=== PATIENT | male | born 1955 | race Caucasian/White ===

== ENCOUNTER 2024-06-20 13:10 | Emergency (ER) | payer MEDICARE, SELFPAY ==
[2024-06-20] VITALS (30 sets, daily range): BP systolic 108–161; BP diastolic 71–100; PULSE 41–66; RESP 16–20; TEMP 37.3; O2SAT 93–98; BMI 26.3
--- NOTE | 2024-06-20 | CRLHL7_ITS ---
For Patients: As a result of the 21st Century Cures Act, medical imaging exams and procedure reports are released immediately into your electronic medical record. You may view this report before your referring provider. If you have questions, please contact your health care provider. INDICATION: LEFT FACIAL Weakness, HEAD THROUGH LEFT SIDE OF FACE. HX EPILEPSY TECHNIQUE: CT of the head was performed without IV contrast. COMPARISON: None. FINDINGS: Parenchyma: No acute hemorrhage, infarction, or mass. Mild scattered periventricular white matter hypoattenuation is nonspecific and is favored to represent chronic small vessel ischemic disease. Ventricles and extra-axial spaces: Mild involutional changes. Visualized paranasal sinuses: Clear. Mastoid air cells: Clear. Bones: No focal abnormality. Additional comment: None. IMPRESSION: No acute hemorrhage or large territorial infarct. Findings discussed with Dr. Loya at 1:27 p.m. on 06/20/2024. Please note that all CT scans at this facility use dose modulation, iterative reconstruction, and/or weight-based dosing when appropriate to reduce radiation dose to as low as reasonably achievable. Dictated by Chuy Jacobson MD @ 06/20/2024 1:28:52 PM (Electronically Signed)
--- NOTE | 2024-06-20 13:20 | CRLHL7_ITS ---
For Patients: As a result of the Century Cures Act, medical imaging exams and procedure reports are released immediately into your electronic medical record. You may view this report before your referring provider. If you have questions, please contact your health care provider. DATE: CLINICAL HISTORY: Patient with focal neurological deficits. TECHNIQUE: Standard helical CT image acquisition of the neck up to the skull base after bolus intravenous contrast enhancement. 2D and 3D MIP images for post-processing were performed and interpreted on an independent workstation and 3D images were permanently archived. COMPARISON: CT same day. FINDINGS: The origins of the great vessels from the aortic arch are patent. The origin of the right vertebral artery is patent. The origin of the left vertebral artery is patent. The common carotid arteries are patent. There is no stenosis at the origin of the right internal carotid artery. There is no stenosis at the origin of the left internal carotid artery. The rest of the cervical segments of the internal carotid arteries are patent up to the skull base. The vertebral arteries are codominant. The cervical segments of the vertebral arteries are patent up to the skull base. The visualized lung apices are unremarkable. The thyroid gland is unremarkable. The soft tissues of the neck are unremarkable. There are degenerative changes in the cervical spine. IMPRESSION: Patent cervical vasculature. Please note that all CT scans at this facility use dose modulation, iterative reconstruction, and/or weight-based dosing when appropriate to reduce radiation dose to as low as reasonably achievable. Dictated by Robbi Hutton MD @ 06/20/2024 3:15:43 PM (Electronically Signed)
--- NOTE | 2024-06-20 13:20 | CRLHL7_ITS ---
For Patients: As a result of the Century Cures Act, medical imaging exams and procedure reports are released immediately into your electronic medical record. You may view this report before your referring provider. If you have questions, please contact your health care provider. DATE: 06/20/2024 CLINICAL HISTORY: Patient with focal neurological deficits. TECHNIQUE: Standard helical CT image acquisition through the intracranial circulation following intravenous administration of contrast material with bolus tracking. 2D and 3D MIP images for post-processing were performed and interpreted on an independent workstation and 3D images were permanently archived. COMPARISON: CT same day. FINDINGS: There is no cerebral aneurysm or large vessel occlusion. The right internal carotid artery is normal. The right middle cerebral artery and its branches are normal. The right anterior cerebral artery and its branches are normal. The left internal carotid artery is normal. The left middle cerebral artery and its branches are normal. The left anterior cerebral artery and its branches are normal. The anterior communicating artery is well visualized and appears normal. The right vertebral artery and PICA are normal. The left vertebral artery and PICA are normal. The vertebral arteries are codominant. The basilar artery is patent and appears normal. The right posterior cerebral artery is normal. The left posterior cerebral artery is normal. The visualized venous structures are patent. IMPRESSION: Patent proximal intracranial vasculature without intracranial aneurysms. Please note that all CT scans at this facility use dose modulation, iterative reconstruction, and/or weight-based dosing when appropriate to reduce radiation dose to as low as reasonably achievable. Dictated by Robbi Hutton MD @ 06/20/2024 3:17:19 PM (Electronically Signed)
--- NOTE | 2024-06-20 13:53 | ED.GENADULT ---
HPI - General Adult General Chief complaint: Neuro Symptoms/Altered Deficit Stated complaint: L facial weakness Time Seen by Provider: 06/20/24 13:20 Source: patient Mode of arrival: ambulatory Limitations: no limitations History of Present Illness HPI narrative: 68-year-old male who presents to the emergency department approximately 2 hours after he felt tingling begin on the left side of the face. The tingling encompasses the forehead, cheek, jaw area. Tingling does not cross the midline. He denies headache, blurry vision, changes in his speech, word-finding difficulty, ringing in his ear. He denies any focal neurologic deficits of the extremities. He has not had difficult time walking. He states that the tingling has slightly subsided but is still present. He denies difficulty swallowing. He denies any recent illness or rashes. Past medical history significant for coronary artery disease status post stenting, epilepsy. Patient takes daily baby aspirin, atorvastatin, sertraline, Tegretol. Related Data Home Medications ?Medication ?Instructions ?Recorded ?Confirmed Tegretol 06/20/24 aspirin 81 mg tablet,delayed 81 mg PO DAILY 06/20/24 06/20/24 release atorvastatin 40 mg tablet 40 mg PO DAILY 06/20/24 06/20/24 sertraline 100 mg tablet 100 mg PO DAILY 06/20/24 06/20/24 Allergies Allergy/AdvReac Type Severity Reaction Status Date / Time No Known Drug Allergies Allergy Verified 06/20/24 15:34 Review of Systems Status of ROS: Reports: 10 or more systems reviewed and unremarkable except as noted in History and below Exam Narrative: Exam Narrative: Well-nourished well-developed patient in no acute distress. Alert and oriented. Answers questions appropriately. Mood and affect are appropriate. Thoughts are goal oriented and rational. No tangential or magical thinking noted. Patient speaks in full sentences without needing to catch his breath. GCS is 15. Speech is not slurred or pressure. No word-finding difficulty. HEENT: Normocephalic atraumatic. Face is symmetric. Pupils are equally round reactive to light. Extraocular muscles are intact. Conjunctivae are moist without any icterus noted. Moist mucous membranes. Posterior pharynx is normal. Neck is soft without any lymphadenopathy or thyromegaly. TMs are clear bilaterally. Cardiovascular: Heart is regular rate and rhythm S1 and S2 are present without any murmurs. Lungs: Clear to auscultation bilaterally no wheezes rhonchi or rales are appreciated. Patient takes deep breaths without any discomfort. Abdomen: Soft and nontender nondistended with normal bowel sounds. Extremities: Bilateral lower extremities are without edema. Skin: Well perfused without any obvious rashes. Strength is 5/5 of the upper and lower extremities. Reflexes are 2+ and symmetric at the knees. Hand board turner is normal and symmetric. Cranial nerves 3-12 are normal. [id number] is normal. There is no nystagmus either horizontally or vertically. Const: Vital Signs, click to edit/add: Vital Signs - 24 hr 06/20/24 13:13 06/20/24 13:15 06/20/24 13:16 Temperature 99.1 F Pulse Rate Pulse Rate [Pulse Oximeter] 48 L Pulse Rate [Radial ] 45 L Respiratory Rate 20 Blood Pressure 151/88 H Blood Pressure [Le ft Upper Arm] 151/88 H Pulse Oximetry 98 Oxygen Delivery Me od Room Air 06/20/24 13:20 06/20/24 13:21 06/20/24 13:25 Temperature Pulse Rate 55 L 48 L Pulse Rate [Pulse Oximeter] Pulse Rate [Radial ] Respiratory Rate 16 Blood Pressure 141/84 H Blood Pressure [Le ft Upper Arm] Pulse Oximetry 94 97 98 Oxygen Delivery Hi thod 06/20/24 13:30 06/20/24 13:30 06/20/24 13:32 Temperature Pulse Rate 44 L 48 L Pulse Rate [Pulse Oximeter] Pulse Rate [Radial ] 45 L Respiratory Rate 16 Blood Pressure 135/100 H Blood Pressure [Le ft Upper Arm] Pulse Oximetry 98 98 Oxygen Delivery Hi thod 06/20/24 13:33 06/20/24 13:45 06/20/24 13:48 Temperature Pulse Rate 43 L 66 Pulse Rate [Pulse Oximeter] Pulse Rate [Radial ] 45 L Respiratory Rate Blood Pressure Blood Pressure [Le ft Upper Arm] Pulse Oximetry 98 98 Oxygen Delivery Hi thod 06/20/24 13:51 06/20/24 14:00 06/20/24 14:00 Temperature Pulse Rate 66 43 L Pulse Rate [Pulse Oximeter] Pulse Rate [Radial ] 45 L Respiratory Rate 18 Blood Pressure 161/94 H Blood Pressure [Le ft Upper Arm] Pulse Oximetry 98 96 Oxygen Delivery [facility] 06/20/24 14:02 06/20/24 14:15 06/20/24 14:15 Temperature Pulse Rate 46 L 42 L Pulse Rate [Pulse Oximeter] Pulse Rate [Radial ] 45 L Respiratory Rate 18 Blood Pressure 126/75 Blood Pressure [Le ft Upper Arm] Pulse Oximetry 98 94 Oxygen Delivery [facility] 06/20/24 14:17 06/20/24 14:30 06/20/24 14:30 Temperature Pulse Rate 42 L 41 L Pulse Rate [Pulse Oximeter] Pulse Rate [Radial ] 45 L Respiratory Rate Blood Pressure 113/71 Blood Pressure [Le ft Upper Arm] Pulse Oximetry 97 96 Oxygen Delivery [facility] 06/20/24 14:32 06/20/24 14:45 06/20/24 14:45 Temperature Pulse Rate 41 L 42 L Pulse Rate [Pulse Oximeter] Pulse Rate [Radial ] 45 L Respiratory Rate Blood Pressure 108/71 Blood Pressure [Le ft Upper Arm] Pulse Oximetry 97 97 Oxygen Delivery [facility] 06/20/24 14:47 06/20/24 14:48 06/20/24 15:00 Temperature Pulse Rate 42 L 43 L Pulse Rate [Pulse Oximeter] Pulse Rate [Radial ] 45 L Respiratory Rate Blood Pressure 119/74 Blood Pressure [Le ft Upper Arm] Pulse Oximetry 94 95 Oxygen Delivery [facility] 06/20/24 15:00 06/20/24 15:02 06/20/24 15:15 Temperature Pulse Rate 43 L 41 L 42 L Pulse Rate [Pulse Oximeter] Pulse Rate [Radial ] Respiratory Rate 18 Blood Pressure 109/72 Blood Pressure [Le ft Upper Arm] Pulse Oximetry 94 95 94 Oxygen Delivery [facility] 06/20/24 15:16 06/20/24 15:30 Temperature Pulse Rate 43 L 41 L Pulse Rate [Pulse Oximeter] Pulse Rate [Radial ] Respiratory Rate 16 Blood Pressure 114/71 Blood Pressure [Le ft Upper Arm] Pulse Oximetry 93 95 Oxygen Delivery [facility] Course Course ED Course: Stroke code was called and patient was met in the hallway just prior to entering the room. After a brief H and P patient proceeded to head CT. Head CT was unremarkable. Labs were drawn at this time and an IV was established. Full physical and history was done. EKG, read by me, shows sinus bradycardia with a pulse of 45. While waiting for lab results to return patient developed chest pain. Pain is substernal, sudden and sharp, alleviated by deep breaths. Patient received a dose of sublingual nitro which did alleviate his discomfort. 324 mg of aspirin also given at this time. Repeat EKG at this time shows sinus rhythm with a pulse of 69. Pain was somewhat reproducible with palpation around the xiphoid area. Upon further conversation, patient tells me that he does have a history of esophageal spasms that present this way. Preliminary reports for head and neck CTA were both normal. Repeat troponin was normal. Patient's tingling had resolved by this time. I consulted with Dr. Quispe at [facility] who does not recommend any treatment at this time after reviewing the patient's images. We discussed potential differential diagnoses which includes seizure, stroke or TIA, early Lamb's palsy. She does not recommend treating unless something presents itself. She recommends outpatient follow-up with primary care we will also get the patient set up with a neurologist. Vital Signs Vital signs: Initial Vital Signs Pulse Rate 45 L 06/20/24 13:13 Pulse Rhythm Regular 06/20/24 13:13 Pulse Strength 3+ Normal 06/20/24 13:13 Vital Signs Pulse Rate 45 L 06/20/24 13:13 Temperature 99.1 F 06/20/24 13:16 Pulse Rate 41 L 06/20/24 15:30 Respiratory Rate 16 06/20/24 15:16 Blood Pressure 114/71 06/20/24 15:16 Pulse Oximetry 95 06/20/24 15:30 Oxygen Delivery Method Room Air 06/20/24 13:16 Medications Administered Medications: Discontinued Medications Generic Name Dose Route Start Last Admin Trade Name Tangela PRN Reason Stop Dose Admin Aspirin 324 mg 06/20/24 13:51 06/20/24 14:05 Aspirin 81 Mg Tab.Chew PO 06/20/24 13:52 324 mg ONCE ONE Administration Nitroglycerin 0.4 mg 06/20/24 13:51 06/20/24 14:05 Nitroglycerin 0.4 Mg Tab.Subl SUBLINGUAL 06/20/24 13:52 0.4 mg ONCE ONE Administration Medical Decision Making MDM Narrative Medical decision making narrative: 68-year-old male with tingling of his face, now resolved. Plan per above. Lab Data Lab results reviewed: Yes I reviewed the patient's lab results Labs: Lab Results 06/20/24 06/20/24 06/20/24 Range/Units 13:31 13:36 15:13 WBC 6.89 (4.50-11.00) K/uL RBC 4.80 (4.30-5.90) m/uL Hgb 15.2 (13.5-17.5) gm/dL Hct 45.3 (37.0-53.0) % MCV 94 (80-100) fL MCH 32 (26-34) pg MCHC 34 (32-36) gm/dL RDW Coeff of Liz 12.2 (11.5-15.5) % Plt Count 224 (140-440) K/uL Neut % (Auto) 65.0 (42.0-72.0) % Lymph % (Auto) 25.1 (20-44) % [place] % (Auto) 7.7 (0.0-11.0) % Eos % (Auto) 1.5 (0.0-7.0) % Baso % (Auto) 0.6 (0.0-3.0) % Neut # (Auto) 4.48 (1.7-7.0) K/uL Lymph # (Auto) 1.73 (0.90-2.90) K/uL [place] # (Auto) 0.50 (0.00-0.90) K/UL Eos # (Auto) 0.10 (0.00-0.50) K/uL Baso # (Auto) 0.04 (0.00-0.30) K/uL Abs Immat Gran (auto) 0.01 (0.00-0.30) K/uL Imm/Tot Granulo (auto) 0.1 % Sodium 136 (135-149) mmol/L Potassium 3.7 (3.6-5.1) mmol/L Chloride 103 (96-114) mmol/L Carbon Dioxide 24 (20-32) mmol/L Anion Gap 9 (7-15) mEq/L BUN 18 (7-30) mg/dL Creatinine 0.9 (0.5-1.5) mg/dL Estimated Creat Clear 70.97 Estimated GFR 92 ml/min Glucose 118 H (60-115) mg/dL Calcium 9.3 (8.4-10.6) mg/dL Total Bilirubin 0.4 (0.1-1.5) mg/dL Direct Bilirubin 0.2 (0.0-0.5) mg/dL AST 27 (12-35) U/L ALT 24 (4-50) U/L Alkaline Phosphatase 53 (40-150) U/L Troponin I < 0.01 L (0.01-0.04) ng/mL C-Reactive Protein < 0.5 L (0.5-1.0) mg/dL Total Protein 6.7 (6.0-8.3) g/dL Albumin 4.2 (3.3-5.0) g/dL TSH 2.630 (0.270-4.20) uIU/mL POC Creatinine 1.1 (0.6-1.3) mg/dl POC Troponin I 0.02 (0.01-0.04) ng/ml Imaging Data CT scan - head: Attestation: I have reviewed the pertinent imaging results. Radiologist's impression: TECHNIQUE: CT of the head was performed without IV contrast. COMPARISON: None. FINDINGS: Parenchyma: No acute hemorrhage, infarction, or mass. Mild scattered periventricular white matter hypoattenuation is nonspecific and is favored to represent chronic small vessel ischemic disease. Ventricles and extra-axial spaces: Mild involutional changes. Visualized paranasal sinuses: Clear. Mastoid air cells: Clear. Bones: No focal abnormality. Additional comment: None. IMPRESSION: No acute hemorrhage or large territorial infarct. Findings discussed with Dr. Loya at 1:27 p.m. on 06/20/2024. Prelim head and neck CTA: Attestation: I have reviewed the pertinent imaging results. Radiologist's impression: Study:?CT-Neck Angio Angio STROKE PROTOCOL W/ 95CC [id number]-3-06/20/2024 1:49:06 PM Ordering Physician:Cecilio Carolina Preliminary Report: Preliminary report : . CTA head: No large vessel occlusion. . CTA neck: No high-grade carotid artery stenosis, occlusion or dissection. Bilateral vertebral arteries are patent. CTA neck: Attestation: I have reviewed the pertinent imaging results. Radiologist's impression: TECHNIQUE: Standard helical CT image acquisition of the neck up to the skull base after bolus intravenous contrast enhancement. 2D and 3D MIP images for post-processing were performed and interpreted on an independent workstation and 3D images were permanently archived. COMPARISON: CT same day. FINDINGS: The origins of the great vessels from the aortic arch are patent. The origin of the right vertebral artery is patent. The origin of the left vertebral artery is patent. The common carotid arteries are patent. There is no stenosis at the origin of the right internal carotid artery. There is no stenosis at the origin of the left internal carotid artery. The rest of the cervical segments of the internal carotid arteries are patent up to the skull base. The vertebral arteries are codominant. The cervical segments of the vertebral arteries are patent up to the skull base. The visualized lung apices are unremarkable. The thyroid gland is unremarkable. The soft tissues of the neck are unremarkable. There are degenerative changes in the cervical spine. IMPRESSION: Patent cervical vasculature. CTA head: Attestation: I have reviewed the pertinent imaging results. Radiologist's impression: TECHNIQUE: Standard helical CT image acquisition through the intracranial circulation following intravenous administration of contrast material with bolus tracking. 2D and 3D MIP images for post-processing were performed and interpreted on an independent workstation and 3D images were permanently archived. COMPARISON: CT same day. FINDINGS: There is no cerebral aneurysm or large vessel occlusion. The right internal carotid artery is normal. The right middle cerebral artery and its branches are normal. The right anterior cerebral artery and its branches are normal. The left internal carotid artery is normal. The left middle cerebral artery and its branches are normal. The left anterior cerebral artery and its branches are normal. The anterior communicating artery is well visualized and appears normal. The right vertebral artery and PICA are normal. The left vertebral artery and PICA are normal. The vertebral arteries are codominant. The basilar artery is patent and appears normal. The right posterior cerebral artery is normal. The left posterior cerebral artery is normal. The visualized venous structures are patent. IMPRESSION: Patent proximal intracranial vasculature without intracranial aneurysms. ECG Data Attestation: I personally reviewed and interpreted this ECG as follows: Discharge Plan Discharge Clinical Impression: Facial tingling Additional Instructions: Recommend you follow-up with your primary care provider this week or early next week. We will also get you the information for a neurologist closer to home. If your symptoms return, worsen or you develop other concerning symptoms, you should return to the emergency room. Prescriptions: No Action Tegretol atorvastatin 40 mg tablet 40 mg PO DAILY aspirin 81 mg tablet,delayed release (DR/EC) 81 mg PO DAILY sertraline 100 mg tablet 100 mg PO DAILY Follow Up/Referrals: Provider,Not a Local [Primary Care Provider] - Stand Alone Forms: MyHealth Info Instructions
[2024-06-20 13:56] LABS: Creatinine, Point-of-Care* 1.1 mg/dl (0.6-1.3)
[2024-06-20] MEDS: NITROGLYCERIN 0.4 MG TAB.SUBL SUBLINGUAL (14:05)
[2024-06-20] MEDS: ASPIRIN 81 MG TAB.CHEW 324 MG PO (14:05)
[2024-06-20 14:20] LABS: Basophils Absolute Auto 0.04 K/uL (0.00-0.30); Basophils Percent Auto 0.6 % (0.0-3.0); Eosinophils Percent Auto 1.5 % (0.0-7.0); Hematocrit 45.3 % (37.0-53.0); Hemoglobin* 15.2 gm/dL (13.5-17.5); Immature Granulocytes Abs Auto 0.01 K/uL (0.00-0.30); Immature Granulocytes Pct Auto 0.1 %; Lymphocytes Absolute Auto 1.73 K/uL (0.90-2.90); Lymphocytes Percent Auto 25.1 % (20-44); Mean Corpuscular HGB Conc 34 gm/dL (32-36); Mean Corpuscular Hemoglobin 32 pg (26-34); Mean Corpuscular Volume 94 fL (80-100); Monocytes Percent Auto 7.7 % (0.0-11.0); Neutrophils Absolute Auto 4.48 K/uL (1.7-7.0); Platelet Count* 224 K/uL (140-440); RDW Coefficient of Variation % 12.2 % (11.5-15.5); White Blood Count* 6.89 K/uL (4.50-11.00)
[2024-06-20 14:40] LABS: Albumin* 4.2 g/dL (3.3-5.0)
[2024-06-20 14:41] LABS: Chloride* 103 mmol/L (96-114); Potassium* 3.7 mmol/L (3.6-5.1); Sodium* 136 mmol/L (135-149)
[2024-06-20 14:43] LABS: Bilirubin Direct* 0.2 mg/dL (0.0-0.5); Bilirubin Total* 0.4 mg/dL (0.1-1.5)
[2024-06-20 14:44] LABS: Alanine Aminotransferase* 24 U/L (4-50); Alkaline Phosphatase* 53 U/L (40-150); Anion Gap 9 mEq/L (7-15); Aspartate Amino Transferase* 27 U/L (12-35); Blood Urea Nitrogen* 18 mg/dL (7-30); Carbon Dioxide* 24 mmol/L (20-32); Creatinine* 0.9 mg/dL (0.5-1.5); Est. Creatinine Clearance* 70.97; Estimated Glomerular Filt Rate 92 ml/min; Total Protein* 6.7 g/dL (6.0-8.3)
[2024-06-20 14:45] LABS: Calcium* 9.3 mg/dL (8.4-10.6); Glucose* 118 mg/dL (60-115); Slide Review Reflex No
[2024-06-20 14:47] LABS: C Reactive Protein* < 0.5 mg/dL (0.5-1.0)
[2024-06-20 14:59] LABS: Troponin I* < 0.01 ng/mL (0.01-0.04)
[2024-06-20 15:37] LABS: Troponin, Point-of-Care* 0.02 ng/ml (0.01-0.04)
[2024-06-22 16:13] LABS: Lyme ELISA Reflex 0.34 IV (<=0.90)
== END 2024-06-20 16:24 | disposition home or self-care (01) ==
PROVIDERS: Emergency Provider Family Medicine
DX: R20.2 Paresthesia of skin (principal)
CPT/HCPCS: 36415; 70450; 70496; 70498; 80048; 80076; 82565; 84443; 84484; 85025; 86140; 86618; 93005; 94761; 99284; 99285; 99291; A9270; Q9967